=== PATIENT | male | born 1980 | race Caucasian/White ===

== ENCOUNTER 2016-09-12 18:37 | Emergency (ER) | payer MEDICAID ==
[~2016-09-12] VITALS: Ht 188 cm; Wt 73.2 kg
[2016-09-12 20:36] VITALS: BP 108/61
== END 2016-09-12 21:01 | disposition home or self-care (01) ==
LOC: ED 20:55
DX: S09.90XA Unspecified injury of head, initial encounter (principal); S09.93XA Unspecified injury of face, initial encounter; Y04.8XXA Assault by other bodily force, initial encounter; Y93.89 Activity, other specified; Y92.89 Other specified places as the place of occurrence of the external cause; Y99.8 Other external cause status
CPT/HCPCS: 70486; 72125; 99284

== ENCOUNTER 2016-10-01 17:47 | Emergency (ER) | payer MEDICAID ==
[~2016-10-01] VITALS: Ht 188 cm; Wt 73.8 kg
[2016-10-01] MEDS ORDERED: DIAZEPAM 5 MG TABLET ONE (18:58)
[2016-10-01] MEDS ORDERED: HYDROcodone/APAP 5/325 TABLET ONE (18:59)
[2016-10-01] MEDS ORDERED: KETOROLAC 30 MG/1 ML ONE (18:59)
[2016-10-01] MEDS ORDERED: HYDROcodone/APAP 5/325 TABLET PO ONE (19:00)
[2016-10-01] MEDS ORDERED: KETOROLAC 30 MG/1 ML IVPush ONE (19:00)
[2016-10-01] MEDS ORDERED: DIAZEPAM 5 MG TABLET PO ONE (19:00)
[2016-10-01 20:06] VITALS: BP 98/63
== END 2016-10-01 20:39 | disposition home or self-care (01) ==
LOC: ED 20:33
DX: S39.012A Strain of muscle, fascia and tendon of lower back, initial encounter (principal); S29.012A Strain of muscle and tendon of back wall of thorax, initial encounter; X58.XXXA Exposure to other specified factors, initial encounter; Y93.89 Activity, other specified; Y99.8 Other external cause status; Y92.89 Other specified places as the place of occurrence of the external cause
CPT/HCPCS: 72072; 72110; 93005; 96374; 99284; J1885

== ENCOUNTER 2017-08-01 23:23 | Emergency (ER) | payer MEDICAID ==
[~2017-08-01] VITALS: Ht 185.4 cm; Wt 74.3 kg
[2017-08-01 23:24] VITALS: BP 109/68
== END 2017-08-02 01:42 | disposition home or self-care (01) ==
LOC: ED 08-02 01:36
DX: M25.562 Pain in left knee (principal); M25.561 Pain in right knee
CPT/HCPCS: 99281

== ENCOUNTER 2017-11-25 14:45 | Emergency (ER) | payer MEDICAID ==
[~2017-11-25] VITALS: Ht 185.4 cm; Wt 71.8 kg
[2017-11-25 14:47] VITALS: BP 111/51
== END 2017-11-25 16:27 | disposition home or self-care (01) ==
LOC: ED 16:07
DX: M25.532 Pain in left wrist (principal); M25.562 Pain in left knee; G89.29 Other chronic pain
CPT/HCPCS: 99284

== ENCOUNTER 2018-04-25 18:39 | Emergency (ER) | payer MEDICAID ==
[~2018-04-25] VITALS: Ht 185.4 cm; Wt 75.9 kg
[2018-04-25 18:53] VITALS: BP 115/72
== END 2018-04-25 20:45 | disposition home or self-care (01) ==
LOC: ED 19:55
DX: S63.502A Unspecified sprain of left wrist, initial encounter (principal); Z86.69 Personal history of other diseases of the nervous system and sense organs; W19.XXXA Unspecified fall, initial encounter; Y93.89 Activity, other specified; Y92.89 Other specified places as the place of occurrence of the external cause; Y99.8 Other external cause status
CPT/HCPCS: 99283

== ENCOUNTER 2018-05-05 17:36 | Emergency (ER) | payer MEDICAID ==
[~2018-05-05] VITALS: Ht 188 cm; Wt 73.7 kg
[2018-05-05 17:54] VITALS: BP 125/65
== END 2018-05-05 18:59 | disposition home or self-care (01) ==
LOC: ED 18:53
DX: L03.312 Cellulitis of back [any part except buttock and flank] (principal)
CPT/HCPCS: 99283

== ENCOUNTER 2018-05-17 20:44 | Emergency (ER) | payer MEDICAID ==
[~2018-05-17] VITALS: Ht 188 cm; Wt 73.9 kg
--- NOTE | 2018-05-17 21:35 | NUR ---
PT TO ROOM FROM LOBBY
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
[2018-05-17 22:14] LABS: BASOPHILS # (AUTO) 0.13 x10^3/uL (0-0.1); BASOPHILS % (AUTO) 1 % (0-1); EOSINOPHILS # (AUTO) 0.04 x10^3/uL (0-0.4); EOSINOPHILS % (AUTO) 0 % (1-7); LYMPHOCYTES # (AUTO) 2.11 x10^3/uL (1-3.4); LYMPHOCYTES % (AUTO) 20 % (22-44); MD NO; MEAN CORPUSCULAR HEMOGLOBIN 31.2 pg (27.5-34.5); MEAN CORPUSCULAR HGB CONC 34.2 g/dL (33.2-36.2); MEAN CORPUSCULAR VOLUME 91.1 fL (81-97); MEAN PLATELET VOLUME 6.5 fL (7.4-10.4); MONOCYTES # (AUTO) 1.17 x10^3/uL (0.2-0.8); MONOCYTES % (AUTO) 11 % (2-9); NEUTROPHILS # (AUTO) 7.23 x10^3/uL (1.8-6.8); NEUTROPHILS % (AUTO) 68 % (42-75); PLATELET COUNT 333 x10^3/uL (130-400)
[2018-05-17] MEDS ORDERED: GABA600T2 PO (22:15)
[2018-05-17] MEDS ORDERED: LORA10TA3 PO (22:15)
[2018-05-17] MEDS ORDERED: MELO15TA24 PO (22:16)
[2018-05-17] MEDS ORDERED: METH500T7 PO (22:16)
[2018-05-17] MEDS ORDERED: PHEN100C4 PO (22:17)
[2018-05-17 22:23] LABS: ALBUMIN 3.6 g/dL (3.4-5.0); ANION GAP 8 mmol/L (5-15); CALCIUM 8.1 mg/dL (8.5-10.1); CHLORIDE 104 mmol/L (98-107); CREATININE 1.05 mg/dL (0.7-1.3)
[2018-05-17 23:16] VITALS: BP 110/59
--- NOTE | 2018-05-17 23:16 | NUR ---
pt sleeping in [facility]. all monitors in place. call light within reach.
--- NOTE | 2018-05-17 23:25 | NUR ---
PRECEPTOR NOTE: NO SEIZURE ACTIVITY NOTED DURING THIS VISIT. PT A&OX4, RESPS EVEN AND UNLABORED, SKIN PWD. PT GIVEN DC INSTRUCTIONS. PT VERBALIZES UNDERSTANDING. PT EDUCATED NOT TO DRIVE OR OPERATE HEAVY MACHINERY. PT GIVEN CAB VOUCHER TO [facility]. PT AMB TO DC DESK WITH STEADY GAIT, WITH ALL BELONGINGS INCLUDING HOME MEDS.
== END 2018-05-17 23:26 | disposition home or self-care (01) ==
LOC: ED 22:47
DX: G40.919 Epilepsy, unspecified, intractable, without status epilepticus (principal); G89.29 Other chronic pain; J45.909 Unspecified asthma, uncomplicated
CPT/HCPCS: 36415; 71045; 80048; 82040; 85025; 99284

== ENCOUNTER 2018-06-24 08:24 | Emergency (ER) | payer MEDICAID ==
[~2018-06-24] VITALS: Ht 188 cm; Wt 72.5 kg
[~2018-06-24 08:24] MED LIST: GABA600T7 PO; LORA-247 PO; MELO15TA24 PO; METH500T7 PO; PHEN100C4 PO
[2018-06-24 08:55] VITALS: BP 111/62
--- NOTE | 2018-06-24 09:24 | NUR ---
QUENTIN Logan discharging patient to discharge desk now, he has steady gait unassisted.
== END 2018-06-24 10:08 | disposition home or self-care (01) ==
LOC: ED 09:20
DX: J00 Acute nasopharyngitis [common cold] (principal); B34.9 Viral infection, unspecified; J02.8 Acute pharyngitis due to other specified organisms; G40.909 Epilepsy, unspecified, not intractable, without status epilepticus; Z86.69 Personal history of other diseases of the nervous system and sense organs
CPT/HCPCS: 99283